=== PATIENT | female | born 1975 | race Caucasian/White ===

== ENCOUNTER → 2016-05-13 10:55 | Outpatient (CLI) | payer BC ==
[2009-10-29 12:59] VITALS: BMI 31.1
== END | disposition home or self-care (01) ==
LOC: D.MRI 10:55
DX: R51 Headache (principal)

== ENCOUNTER 2018-01-24 08:30 | Day surgery (SDC) | payer BC ==
[2018-01-17 09:29] LABS: BASOPHILS 0.6 % (0-2); EOSINOPHILS 2.2 % (0-7); HEMATOCRIT 39.4 % (36.0-48.0); HEMOGLOBIN 13.4 g/dL (12-16); IMMATURE GRANULOCYTES 0.2 % (0-5); LYMPHOCYTES 27.9 % (15-50); MCH 30.4 pg (26.0-34.0); MCV 89.3 fL (80.0-100.0); MEAN PLATELET VOLUME 8.4 fL (7.4-10.4); MONOCYTES 7.1 % (2-11); PLATELET COUNT 234 10x3/uL (130-400); RBC 4.41 10x6/uL (4.00-5.40); RDW 12.8 % (11.5-14.5); WBC 5.3 10x3/uL (4.8-10.8)
[2018-01-17 09:34] LABS: CALC OSMOLALITY 277 mosm/kg (275-300); CALCIUM 7.9 mg/dL (8.5-10.1); CARBON DIOXIDE 26.5 mmol/L (21.0-32.0); CHLORIDE - SERUM 104 mmol/L (98-107); CREATININE - SERUM 0.8 mg/dL (0.6-1.3); GLUCOSE 101 mg/dL (74-106); POTASSIUM - SERUM 3.9 mmol/L (3.5-5.1); SODIUM 139 mmol/L (136-145); UREA NITROGEN 12 mg/dL (7-18); eGFR NON AFRICAN AMERICAN 84 mL/min (90-120)
[2018-01-17 09:47] LABS: APTT 26.6 SECONDS (22.8-39.4); INR 0.98 (0.85-1.17); PROTIME 12.7 SECONDS (11.6-15.0)
[~2018-01-24] VITALS: Ht 172.7 cm; Wt 95.3 kg
[~2018-01-24 08:30] MED LIST: OMEPRAZOLE20 M1 PO; PAMELOR10 MG PO; SYNTHROID125 MCG PO; TENORMIN25 MG PO; TOPAMAX50 MG PO
[2018-01-24 09:31] VITALS: BP 106/69; Ht 172.7 cm; Wt 95.3 kg
[2018-01-24 09:57] LABS: HCG URINE NEGATIVE (NEGATIVE)
== END 2018-01-24 17:55 | disposition home or self-care (01) ==
LOC: D.OPS 08:30 → D.PAN 09:00 → D.OPS 10:30 → D.PAN 17:00 → D.OPS 17:00
PROVIDERS: Anesthesiology; Obstetrics & Gynecology
DX: N73.6 Female pelvic peritoneal adhesions (postinfective) (principal); N83.201 Unspecified ovarian cyst, right side; N94.10 Unspecified dyspareunia; Z01.812 Encounter for preprocedural laboratory examination

== ENCOUNTER → 2018-04-16 15:38 | Outpatient (CLI) | payer BC ==
[2018-01-24 09:31] VITALS: BMI 32.0
[2018-04-16 17:08] LABS: BASOPHILS 0.4 % (0-2); EOSINOPHILS 1.4 % (0-7); HEMATOCRIT 40.6 % (36.0-48.0); HEMOGLOBIN 13.7 g/dL (12-16); IMMATURE GRANULOCYTES 0.2 % (0-5); LYMPHOCYTES 27.5 % (15-50); MCH 30.5 pg (26.0-34.0); MCHC 33.7 g/dL (31.0-37.0); MCV 90.4 fL (80.0-100.0); MEAN PLATELET VOLUME 8.3 fL (7.4-10.4); MONOCYTES 7.9 % (2-11); NEUTROPHILS 62.6 % (40-80); PLATELET COUNT 209 10x3/uL (130-400); RBC 4.49 10x6/uL (4.00-5.40); RDW 12.5 % (11.5-14.5); WBC 9.8 10x3/uL (4.8-10.8)
[2018-04-16 17:51] LABS: ALBUMIN 3.9 g/dL (3.4-5.0); ALKALINE PHOSPHATASE 99 U/L (46-116); ALT (SGPT) 41 U/L (10-68); BILIRUBIN - TOTAL 0.28 mg/dL (0.2-1.3); CALC OSMOLALITY 272 mosm/kg (275-300); CALCIUM 7.8 mg/dL (8.5-10.1); CHLORIDE - SERUM 101 mmol/L (98-107); CREATININE - SERUM 0.8 mg/dL (0.6-1.3); GLUCOSE 83 mg/dL (74-106); POTASSIUM - SERUM 4.1 mmol/L (3.5-5.1); PROTEIN - SERUM 7.4 g/dL (6.4-8.2); SODIUM 136 mmol/L (136-145); UREA NITROGEN 18 mg/dL (7-18); eGFR NON AFRICAN AMERICAN 84 mL/min (90-120)
== END | disposition home or self-care (01) ==
LOC: D.CT 15:38
PROVIDERS: Psychiatry & Neurology Neurology
DX: G57.21 Lesion of femoral nerve, right lower limb (principal); G43.109 Migraine with aura, not intractable, without status migrainosus; G50.0 Trigeminal neuralgia